=== PATIENT | male | born 2000 | race African-American/Black ===

== ENCOUNTER 2023-09-16 22:48 | Emergency (ER) | payer OTHER, SELFPAY ==
[2023-09-16 22:52] VITALS: BP 155/69; PULSE 64; RESP 18; TEMP 36.6; O2SAT 98; BMI 25.8
--- NOTE | 2023-09-16 23:20 | CT_ITS ---
Patient: TERESA ERNANDEZ Facility:?[facility] Patient ID:?[id number] Site Patient ID:?[id number]. Site :?[id number] Study:?CT-Facial without contrast-09/17/2023 12:59:21 AM Ordering Physician:Macario Majano Final Report: INDICATION: Facial injury. TECHNIQUE: CT maxillofacial without contrast. COMPARISON: None. FINDINGS: Facial bones: Comminuted displaced fracture of the nasal bones. Nondisplaced fracture plane extends to the nasal septum. Orbits and globes: Unremarkable. Globes are intact. No sign of intraorbital hemorrhage or emphysema. Sinuses: Polypoid mucosal thickening with air-fluid levels in the maxillary sinuses. Soft tissues: Nasal soft tissue swelling. IMPRESSION: 1. Comminuted displaced nasal bone fracture. 2. Polypoid mucosal thickening with air-fluid levels in the maxillary sinuses, correlate for acute sinusitis. Please note that all CT scans at this facility use dose modulation, iterative reconstruction, and/or weight-based dosing when appropriate to reduce radiation dose to as low as reasonably achievable. Dictated by Akash Collazo MD @ 09/17/2023 1:06:12 AM Signed by:?Akash Collazo MD @09/17/2023 1:06:12 AM (Electronic Signature)
--- NOTE | 2023-09-16 23:21 | ED.GENADULT ---
HPI - General Adult General Chief complaint: Nose Injury/Pain Stated complaint: Nose Injury Time Seen by Provider: 09/16/23 23:17 History of Present Illness HPI narrative: This 23-year-old male comes in with an injury to his nose that occurred several hours prior to arrival. He was playing soccer and someone bumped him in his nose. He did not have loss of consciousness. He did have a little bit of bleeding. He does have a superficial abrasion on the left side of the bridge of his nose. He reports that the appearance of his nose seems to be skewed to the right now after this injury. Related Data Home Medications Medication Instructions Recorded Confirmed No Known Home Medications 09/16/23 09/16/23 Allergies Allergy/AdvReac Type Severity Reaction Status Date / Time No Known Drug Allergies Allergy Verified 09/16/23 22:52 Review of Systems Status of ROS: Reports: 10 or more systems reviewed and unremarkable except as noted in History and below Narrative: Constitutional: No fevers, no weight gain or loss. Eyes: No discharge. No vision changes. HENT: No congestion, no sore throat, no ear pain. Cardiovascular: No chest pain, no palpitations. Respiratory: No shortness of breath, no wheezes, no cough. Gastrointestinal: No abdominal pain, no vomiting, no diarrhea. Genitourinary: No dysuria, no hematuria. Musculoskeletal: Normal range of motion. Skin: No rashes, no pruritis. Neurological: No dizziness, weakness, sensory change, speech change. Endo/Heme/Allergies: No bruising or bleeding. No polydipsia. Pysch: no suicidality, no anxiety, no insomnia. All other systems reviewed and are negative. PFSH PFS Social History Smoking Status: Never smoker Do you use any of these nicotine containing products: None Second hand tobacco smoke exposure: No How often do you have a drink containing alcohol: never How often do you have six or more drinks on one occasion: Never AUDIT-C Alcohol total score: 0 Non-prescribed substance use: denies use service: No Exam Narrative: Exam Narrative: Constitutional: Well-developed, well-nourished, no acute distress. HEENT: Small abrasion on the left side of the bridge of his nose. This is not a full-thickness wound. The alignment of his nose does seem a bit shifted to his right. Nostrils appear normal bilaterally with speculum exam. Neck: Normal range of motion. Nontender. Supple. Heart: Intact distal pulses. Lungs: No chest discomfort. No wheezes, rhonchi, or rales. Abdomen: Nontender. Back: Normal range of motion. Extremities: Normal range of motion. No injury. Skin: Intact. No rash. Warm. No erythema or pallor. Neurologic: No altered sensation. No weakness. Alert and oriented. Psychiatric: No suicidality. No anxiety or depression. No insomnia. Nursing notes and vitals signs are reviewed. Const: Vital Signs, click to edit/add: Vital Signs - 24 hr 09/16/23 22:52 Temperature 97.8 F Pulse Rate [Left P ulse Oximeter] 64 Respiratory Rate 18 Blood Pressure [Ri ght Upper Arm] 155/69 H Pulse Oximetry 98 Oxygen Delivery Me thod Room Air Course Vital Signs Vital signs: Initial Vital Signs Temperature 97.8 F 09/16/23 22:52 Temperature Source Temporal Artery Scan 09/16/23 22:52 Pulse Rate 64 09/16/23 22:52 Pulse Rhythm Regular 09/16/23 22:52 Respiratory Rate 18 09/16/23 22:52 Blood Pressure 155/69 H 09/16/23 22:52 Blood Pressure Mean 97 09/16/23 22:52 Blood Pressure Position Sitting 09/16/23 22:52 Pulse Oximetry 98 09/16/23 22:52 Oxygen Delivery Method Room Air 09/16/23 22:52 Vital Signs Temperature 97.8 F 09/16/23 22:52 Pulse Rate 64 09/16/23 22:52 Respiratory Rate 18 09/16/23 22:52 Blood Pressure 155/69 H 09/16/23 22:52 Pulse Oximetry 98 09/16/23 22:52 Oxygen Delivery Method Room Air 09/16/23 22:52 Temperature 97.8 F 09/16/23 22:52 Pulse Rate 64 09/16/23 22:52 Respiratory Rate 18 09/16/23 22:52 Blood Pressure 155/69 H 09/16/23 22:52 Pulse Oximetry 98 09/16/23 22:52 Oxygen Delivery Method Room Air 09/16/23 22:52 Medical Decision Making MDM Narrative Medical decision making narrative: This patient comes in with an injury to his nose. A CT scan of the facial bones is ordered and results are pending. I explained to the patient that his option will be to follow-up with ear nose and throat clinic is in about 3 weeks if dissatisfied about the appearance in the function of his nose. I did provide a prescription for Toradol. CT results are delayed because imaging was busy with the OB department. Overnight physician will look after CT imaging results and the patient can be discharged no matter what the findings are as his exam is otherwise reassuring. He does not show any sign of facial bone fracture or entrapment of his eye musculatures. He really does not have any swelling and only shows some mild disfiguration of his nose and a small abrasion on the left side. Discharge Plan Discharge Clinical Impression: Nose deformity Patient Disposition: Home, Self-Care Condition: Stable Additional Instructions: Take medication as needed and directed. Follow-up with ear nose and throat clinic in about 3 weeks for options to attend to any deformity or dysfunction of the nose that may be necessary. Prescriptions: No Action No Known Home Medications Follow Up/Referrals: Suzan Macias MD [Primary Care Provider] - Stand Alone Forms: [facility] Info Instructions
[2023-09-17 00:55] VITALS: BP 137/68; PULSE 54; RESP 16; O2SAT 98
== END 2023-09-17 01:44 | disposition home or self-care (01) ==
PROVIDERS: Emergency Provider Family Medicine; PCP Pediatrics
DX: S02.2XXA Fracture of nasal bones, initial encounter for closed fracture (principal); W50.0XXA Accidental hit or strike by another person, initial encounter; Y93.66 Activity, soccer
CPT/HCPCS: 70486; 99284